=== PATIENT | female | born 1965 | race Two or more races ===

== ENCOUNTER 2024-09-12 15:49 | Inpatient (IN) | payer OTHER ==
[~2024-09-12] VITALS: Ht 167.6 cm; Wt 59.0 kg
--- NOTE | 2024-09-12 15:58 | ECG ---
[facility] Test Date: 2024-09-12 Test Time: 15:50:00 Pat Name: WILI BATES Department: ED Room: Gender: F Service Engine Repairer: makayla : 1965 Requested By: RUFUS PURDY Order Number: [id number] Reading MD: Measurements Intervals [place] Rate: 70 P: 0 VA: 205 QRS: 47 QRSD: 114 T: 151 QT: 424 QTc: 458 Interpretive Statements Atrial-paced rhythm Borderline intraventricular conduction delay Abnormal T, consider ischemia, diffuse leads Please click the below link to view image of tracing.
[2024-09-12 16:31] LABS: Hematocrit 45.8 % (36.0-46.0); Hemoglobin 15.8 g/dL (12.2-16.2); Mean Corpuscular Hemoglobin 31.3 pg (28.0-32.0); Mean Corpuscular Volume 90.9 fL (80.0-100.0); Nucleated Red Blood Cells % 0.2 %
--- NOTE | 2024-09-12 16:31 | DVH ---
XY CHEST PORTABLE, HISTORY: near syncope COMPARISON: None None TECHNICAL DATA: 1 view of the chest was obtained. FINDINGS: Lines and tubes: A cardiac pacer is visualized. Cardiomediastinal silhouette: normal Pulmonary vasculature: normal Lung expansion: normal Lung airspace: normal Lung interstitium: normal Pleura: normal Pneumothorax: no Bones: Unremarkable Other: no IMPRESSION: No acute intrathoracic abnormality.
--- NOTE | 2024-09-12 16:38 | DVH ---
EXAM: CT HEAD WITHOUT CONTRAST INDICATION: near syncope TECHNIQUE: CT of the head without intravenous contrast. Coronal and sagittal reformatted images are s ubmitted. Radiation Dose : 1. Head: CT Dose: CTDI volume is 53.5 mGy. Dose-length product is 966.5 mGy*cm The dose indicators for CT are the volume Computed Tomography (CT) Dose Index (CTDIvol) and the Dose Length Product (DLP), and are measured in units of mGy and mGy-cm, respectively. These indicators are not patient dose, but values generated from the CT scanner acquisition factors. The report includes radiation exposure data for exposures received during this examination. All CT scans at this medical facility are performed using dose modulation techniques as appropriate to a performed exam including the following: Automated exposure control was utilized; adjustment of the MA and/or KV according to patient size; and use of iterative reconstruction technique. COMPARISON: None FINDINGS: There is no evidence of acute intracranial hemorrhage, extra-axial collection, mass effect, midline s hift, herniation or hydrocephalus. Generalized volume loss. The ventricles, sulci and cisterns are age appropriate. The friend-white differentiation is intact. The visualized paranasal sinuses and mastoid air cells are clear. No depressed calvarial fracture. The surrounding soft tissues are unremarkable. IMPRESSION: 1. No evidence of acute intracranial abnormality. HS:Y
[2024-09-12 16:39] LABS: Potassium 4.2 mmol/L (3.5-5.1); Sodium 139 mmol/L (136-145)
[2024-09-12 16:40] LABS: Anion Gap 11 (5-15)
[2024-09-12 16:41] LABS: Calcium 10.1 mg/dL (8.7-10.4); Carbon Dioxide 19 mmol/L (20-31); Chloride 109 mmol/L (98-107)
[2024-09-12 16:45] LABS: BUN/Creatinine Ratio 21.6 (10.0-20.0); Blood Urea Nitrogen 16 mg/dL (9-23); Glucose 101 mg/dL (74-106)
[2024-09-12 17:00] VITALS: PULSE 70; RESP 15; O2SAT 100
[2024-09-12] MEDS: METOCLOPRAMIDE HCL 5MG/ml INJ 2ml VIAL IV ONE (19:04)
--- NOTE | 2024-09-12 19:11 | ED.PDOC ---
History of Present Illness HPI Comments 58 y/o F is BIBA for syncope. Per EMS report, patient passed out, suddenly, when shopping with her at [employer] earlier, today. Syncope episode was witnessed. Patient was caught by and assisted to the ground. No injuries or additional acute symptoms endorsed by the patient after coming to upon arrival to ED. Significant history of pacemaker and multiple cardiac- related surgeries. Chief Complaint: Syncope Time Seen by MD: 15:45 Reviewed Notes: Nurses Notes, Special Education Paraeducator Notes, Medications, Allergies Allergies: Coded Allergies: Phenothiazines (Verified Allergy, Unknown, 09/12/24) Information Source: Patient, Emergency Med Personnel Mode of Arrival: EMS Severity: Moderate Timing: Hours Duration: Since onset Prehospital treatment: None Past Medical History Surgical History: Pacemaker Surgical History (Other): complex heart surgeries All Other Systems: Reviewed and Negative (Comprehensive systems review obtained and negative except for what is stated in the HPI.) Physical Exam General Appearance: No Apparent Distress, Normal HEENT: Normal ENT Inspection, Pharynx Normal, TMs Normal, Other (dry mucus membranes ) Neck: Full Range of Motion, Non-Tender, Normal, Normal Inspection Respiratory: Chest Non-Tender, Lungs Clear, No Accessory Muscle Use, No Respiratory Distress, Normal Breath Sounds Cardiovascular: No Edema, No JVD, No Murmur, No Gallop, Normal Peripheral Pulses, Regular Rate/Rhythm Breast Exam: Deferred Gastrointestinal: No Organomegaly, Non Tender, No Pulsatile Mass, Normal Bowel Sounds, Soft Genitalia: Deferred Pelvic: Deferred Rectal: Deferred Extremities: No calf tenderness, Normal capillary refill, Normal inspection, Normal range of motion, Non-tender, No pedal edema Musculoskeletal : Apperance: Normal Neurologic: Alert, tube maker II-XII nml as Tested, No Motor Deficits, Normal Affect, Normal Mood, No Sensory Deficits Cerebellar Function: Normal Reflexes: Normal Skin: Dry, Normal Color, Warm Lymphatic: No Adenopathy Was a procedure done? Was a procedure done?: No EKG EKG : Pulse Rate (adult): 70 Furlong: Normal Cardiac Rhythm: Paced (atrial paced ) Block: None Hypertrophy: None ST: Normal Differential Dx Considerations may include: vasovagal response, dehydration, electrolyte imbalance, viral syndrome, among others X-Ray, Labs, Meds, VS Vital Signs Date Time Temp Pulse Resp B/P (MAP) Pulse Ox O2 Delivery O2 Flow Rate FiO2 09/12/24 19:11 70 09/12/24 16:07 98.0 70 16 111/66 (81) 96 98.0 09/12/24 15:50 70 Lab Test 09/12/24 19:25 09/12/24 17:29 09/12/24 16:20 Range/Units Troponin I High Sensitivity Pending 3 L 3 L </=34 ng/L White Blood Count 5.9 4.4-10.8 10^3/uL Red Blood Count 5.04 4.0-5.20 10^6/uL Hemoglobin 15.8 12.2-16.2 g/dL Hematocrit 45.8 36.0-46.0 % Mean Corpuscular Volume 90.9 80.0-100.0 fL Mean Corpuscular Hemoglobin 31.3 28.0-32.0 pg Mean Corpuscular Hemoglobin Concent 34.5 32.0-36.0 g/dL Red Cell Distribution Width 13.9 11.8-14.3 % Platelet Count 137 L 140-450 10^3/uL Mean Platelet Volume 8.7 6.9-10.8 fL Neutrophils (%) (Auto) 59.4 37.0-80.0 % Lymphocytes (%) (Auto) 29.4 10.0-50.0 % Monocytes (%) (Auto) 8.9 0.0-12.0 % Eosinophils (%) (Auto) 1.4 0.0-7.0 % Basophils (%) (Auto) 0.9 0.0-2.0 % Neutrophils # (Auto) 3.5 1.6-8.6 10 ^3/uL Lymphocytes # (Auto) 1.7 0.4-5.4 10 ^3/uL Monocytes # (Auto) 0.5 0-1.3 10 ^3/uL Eosinophils # (Auto) 0.1 0-0.8 10 ^3/uL Basophils # (Auto) 0.1 0-0.2 10 ^3/uL Nucleated Red Blood Cells 0.2 % Sodium Level 139 136-145 mmol/L Potassium Level 4.2 3.5-5.1 mmol/L Chloride Level 109 H 98-107 mmol/L Carbon Dioxide Level 19 L 20-31 mmol/L Anion Gap 11 5-15 Blood Urea Nitrogen 16 9-23 mg/dL Creatinine 0.74 0.550-1.02 mg/dL Glomerular Filtration Rate Calc 94 >90 mL/min BUN/Creatinine Ratio 21.6 H 10.0-20.0 Serum Glucose 101 74-106 mg/dL Calcium Level 10.1 8.7-10.4 mg/dL Current Medications Medications (Trade) Dose Ordered Sig/Angelica Route Start Time Stop Time Status Last Admin Metoclopramide HCl (Reglan Injection) 10 mg ONCE ONCE IV 09/12/24 18:30 09/12/24 18:31 DC 09/12/24 19:04 [place] [id number] Ph: [phone] DIAGNOSTIC IMAGING Diagnostic Imaging Report : [id number] Signed PATIENT: WILI BATES ACCT: [id number] UNIT: [id number] : 1965 LOC: ER ROOM / BED: / AGE / SEX: 58 / F ADM STATUS: REG ER SERVICE 1551 ORDERING PHYSICIAN: RUFUS PURDY MD PROCEDURE(s): HWOCT - HEAD WITHOUT CONTRAST REASON: near syncope ORDER NUMBER(s): [id number], ACCESSION NUMBER(s): [id number] EXAM: CT HEAD WITHOUT CONTRAST INDICATION: near syncope TECHNIQUE: CT of the head without intravenous contrast. Coronal and sagittal reformatted images are submitted. Radiation Dose : 1. Head: CT Dose: CTDI volume is 53.5 mGy. Dose-length product is 966.5 mGy*cm The dose indicators for CT are the volume Computed Tomography (CT) Dose Index (CTDIvol) and the Dose Length Product (DLP), and are measured in units of mGy and mGy-cm, respectively. These indicators are not patient dose, but values generated from the CT scanner acquisition factors. The report includes radiation exposure data for exposures received during this examination. All CT scans at this medical facility are performed using dose modulation techniques as appropriate to a performed exam including the following: Automated exposure control was utilized; adjustment of the MA and/or KV according to patient size; and use of iterative reconstruction technique. COMPARISON: None FINDINGS: There is no evidence of acute intracranial hemorrhage, extra-axial collection, mass effect, midline shift, herniation or hydrocephalus. Generalized volume loss. The ventricles, sulci and cisterns are age appropriate. The friend-white differentiation is intact. The visualized paranasal sinuses and mastoid air cells are clear. No depressed calvarial fracture. The surrounding soft tissues are unremarkable. IMPRESSION: 1. No evidence of acute intracranial abnormality. HS:Y ATED BY: RAÚL JAMES MD DICTATED DATE/TIME: 09/12/241634 SIGNED BY: RAÚL JAMES MD SIGNED DATE/TIME: 09/12/241634 CC: [place] [id number] Ph: [phone] DIAGNOSTIC IMAGING Diagnostic Imaging Report : [id number] Signed PATIENT: WILI BATES ACCT: [id number] UNIT: [id number] : 1965 LOC: ER ROOM / BED: / AGE / SEX: 58 / F ADM STATUS: REG ER SERVICE 1551 ORDERING PHYSICIAN: RUFUS PURDY MD PROCEDURE(s): CXRP - CHEST PORTABLE REASON: near syncope ORDER NUMBER(s): [id number], ACCESSION NUMBER(s): [id number] XY CHEST PORTABLE, HISTORY: near syncope COMPARISON: None None TECHNICAL DATA: 1 view of the chest was obtained. FINDINGS: Lines and tubes: A cardiac pacer is visualized. Cardiomediastinal silhouette: normal Pulmonary vasculature: normal Lung expansion: normal Lung airspace: normal Lung interstitium: normal Pleura: normal Pneumothorax: no Bones: Unremarkable Other: no IMPRESSION: No acute intrathoracic abnormality. ATED BY: KAVEH FAM MD DICTATED DATE/TIME: 09/12/241627 SIGNED BY: KAVEH FAM MD SIGNED DATE/TIME: 09/12/241627 CC: Time of 1ST Reevaluation: 16:15 Reevaluation 1ST: Unchanged Patient Education/Counseling: Diagnosis, Treatment Family Education/Counseling: No Family Present Comments Previous visits reviewed: N/A The following tests were ordered, and results were reviewed by me: EKG, troponin, head CT w/o contrast, CXR, UA, CBC, BMP Additional Information was gathered from interviewing the following independent historians: EMS I reviewed and agreed with the following test results read by other providers: head CT w/o contrast, CXR I discussed treatment and results with medical personnel and: patient SEPSIS Sepsis Screen Date sepsis recognized/suspect: Sep 12, 2024 Time Sepsis recognized/suspect: 1553 Recent Procedure: No On Antibiotic Therapy: No Respiratory Rate >20: No Heart Rate >90: No Temp<36 C (96.8 F) or >38.3 C: No SBP <90 or MAP <65 mmHG: No New Acute Mental Status Change: No Is the patient on CPAP, BIPAP,: No Physician Orders Urinalysis (09/12/24 15:51) Chest Portable (09/12/24 15:51) Head Without Contrast (09/12/24 15:51) Troponin-I Hs (09/12/24 18:51) Electrocardigram (09/12/24 16:51) Electrocardigram (09/12/24 18:51) Vital Signs Date Time Temp Pulse Resp B/P (MAP) Pulse Ox O2 Delivery O2 Flow Rate FiO2 09/12/24 19:11 70 09/12/24 16:07 98.0 70 16 111/66 (81) 96 98.0 09/12/24 15:50 70 Laboratory Tests Test 09/12/24 16:20 White Blood Count 5.9 10^3/uL (4.4-10.8) Medications Medications Dose Ordered Sig/Angelica Route Start Time Stop Time Status Last Admin Dose Admin Metoclopramide HCl 10 mg ONCE ONCE IV 09/12/24 18:30 09/12/24 18:31 DC 09/12/24 19:04 Departure 1 Departure Time of Disposition: 19:39 (Patient presented with syncope today and should be admitted. Data: 1. I ordered and reviewed the result of at least 3 labs including a CBC, BMP, and troponin. 2. I independently interpreted the following tests: EKG which shows a paced rhythm and a chest x-ray which shows benign chest and a CT head which shows benign head.Risk:This patient has a high risk of morbidity due to further diagnostic testing or treatment and may suffer from an acute cardiac, neurologic, or infectious disorder. Rationale: Patient should be admitted to the hospital for further management.) Impression: Primary Impression: Syncope and collapse Additional Impression: Generalized weakness Disposition: ADMITTED INPATIENT Admit to: Med Surg Condition: Serious Critical Care Note Critical Care Time?: No Stability Stability form required: No Heart Score Heart Score: Heart Score Response (Comments) Value History Moderate Suspicious 1 EKG Normal 0 Age 45-64 1 Risk Factors 1 or 2 risk factors 1 Troponin Normal limit 0 Total 3 I personally scribed for RUFUS PURDY MD ([email or web address]) on 09/12/24 at 19:11. Electronically submitted by Doron Lerma ([email or web address]). RUFUS PURDY MD Sep 12, 2024 19:11
[2024-09-12 19:30] VITALS: PULSE 70; RESP 12; O2SAT 100
[2024-09-12] MEDS ORDERED: HYDROcodone-ACET 5/325MG TAB PO PRN (21:00)
[2024-09-12] MEDS ORDERED: ACETAMINOPHEN 325 MG TAB PO PRN (21:00)
[2024-09-12 21:40] LABS: Triglycerides 57 mg/dL (< 150)
[2024-09-12 21:42] LABS: Cholesterol 155 mg/dL (< 200); HDL Cholesterol 45 mg/dL (40-59)
[2024-09-12] MEDS: SODIUM CHLORIDE 0.9% 1,000 ML IV ONE ×2 (22:00→22:15)
--- NOTE | 2024-09-12 22:24 | DVHHPRES ---
History of Present Illness Resident Creating Document: CLIVE CHARLES History of Present Illness This is a 58-year-old female with past medical history of pacemaker placement. Patient states had a previous pacemaker in the left upper chest which is still has but [address] a new Medtronic pacemaker in the left lower thoracic area. Patient has hx of congenital heart disease (tetralogy of fallot?) and had madhu wil taussig shunt procedure as well as fontan procedure. The patient was brought by ambulance in the presence of her due to a pr esyncopal episode that happened this morning before coming to the ED while the patient was on [employer] shopping and started feeling generalized weakness, dizziness and reported to her that was not feeling fine. The assisted her to the floor but there was not loss of consciousness at any time and patient was alert and oriented during the episode. Per , the patient also had nausea and small episode of vomiting. Upon admission, CBC and CMP was grossly unremarkable, troponins came back negative. Orthostatic vitals were checked blood pressure lying position was 127/60 mmHg, sitting position was 125/77 mmHg, standing position 143/83 mmHg. Orthostatic vitals were negative. Patient will be admitted for further assessment and management and to rule out any cardiac etiologies of presyncopal event as well as for pacemaker interrogation. Cardiovascular: Other (Congenital heart disease) Past Surgical History: Other (Fontan procedure, Madhu Castillo Taussig shunt procedure) Family History: None Smoke: No ALCOHOL: none Drugs: None Lives: with Family Domestic Violence: Neg Review of Systems Constitutional: No: Fever, Chills, Sweats, Weakness, Malaise, Other Eyes: No: Pain, Vision change, Conjunctivae inflammation, Eyelid inflammation, Other, Redness ENT: No: Ear pain, Ear discharge, Nose pain, Nose discharge, Nose congestion, Mouth pain, Mouth swelling, Throat pain, Throat swelling, Other Respiratory: No: Cough, Dry, Shortness of breath, SOB with excertion, Wheezing, Hemoptysis, Pleuritic Pain, Sputum, Wheezing, Other Cardiovascular: No: Chest Pain, Palpitations, Orthopnea, Paroxysmal Noc. Dyspnea, Edema, Lt Headedness, Other Gastrointestinal: Abdominal Pain; No: Nausea, Vomiting, Diarrhea, Constipation, Melena, Hematochezia, Other Genitourinary: No Dysuria, No Frequency, No Incontinence, No Hematuria, No Retention, No Other Musculoskeletal: No: other, neck pain, shoulder pain, arm pain, back pain, hand pain, leg pain, foot pain Skin: No: Rash, Lesions, Jaundice, Bruising, Other Neurological: No: Weakness, Numbness, Incoordination, Change in speech, Confusion, Seizures, Other Allergies: Coded Allergies: Phenothiazines (Verified Allergy, Unknown, 09/12/24) Medications Current Medications Medications Dose Ordered Sig/Angelica Route Start Time Stop Time Status Last Admin Dose Admin Acetaminophen 650 mg Q6HP PRN PO 09/12/24 21:00 UNV Acetaminophen/ Hydrocodone Bitart 1 tab Q4HP PRN PO 09/12/24 21:00 UNV Enoxaparin Sodium 40 mg DAILY SC 09/13/24 10:00 UNV Exam Vital Signs Vital Signs Date Time Temp Pulse Resp B/P (MAP) Pulse Ox O2 Delivery O2 Flow Rate FiO2 09/12/24 19:11 70 09/12/24 18:00 14 115/58 (77) 100 09/12/24 17:00 Nasal Cannula* 2 28 09/12/24 16:42 98.1 98.1 General Appearance: Alert, Oriented X3, Cooperative, No acute distress HEENT: Atraumatic, PERRLA, EOMI, Mucous membr. moist/pink Respiratory: Clear to auscultation, Normal air movement Cardiovascular: Regular rate, Other (Paced rhythm) Abdominal: Normal bowel sounds, Soft, No tenderness, No hepatospenomegaly Extremities: No clubbing, No cyanosis, No edema, No tenderness/swelling, Other (No pulses present on right upper extremity.) Skin: No rashes, No breakdown, No significant lesion Neuro: Normal gait, Normal speech, Strength at 5/5 X4 ext, Normal tone, Sensation intact, Cranial nerves 3-12 NL, Reflexes 2+ Psych/Mental Status: Mental status NL, Mood NL Labs/Xrays Labs Test 09/12/24 19:25 09/12/24 16:20 Range/Units Troponin I High Sensitivity 3 L </=34 ng/L White Blood Count 5.9 4.4-10.8 10^3/uL Red Blood Count 5.04 4.0-5.20 10^6/uL Hemoglobin 15.8 12.2-16.2 g/dL Hematocrit 45.8 36.0-46.0 % Mean Corpuscular Volume 90.9 80.0-100.0 fL Mean Corpuscular Hemoglobin 31.3 28.0-32.0 pg Mean Corpuscular Hemoglobin Concent 34.5 32.0-36.0 g/dL Red Cell Distribution Width 13.9 11.8-14.3 % Platelet Count 137 L 140-450 10^3/uL Mean Platelet Volume 8.7 6.9-10.8 fL Neutrophils (%) (Auto) 59.4 37.0-80.0 % Lymphocytes (%) (Auto) 29.4 10.0-50.0 % Monocytes (%) (Auto) 8.9 0.0-12.0 % Eosinophils (%) (Auto) 1.4 0.0-7.0 % Basophils (%) (Auto) 0.9 0.0-2.0 % Neutrophils # (Auto) 3.5 1.6-8.6 10 ^3/uL Lymphocytes # (Auto) 1.7 0.4-5.4 10 ^3/uL Monocytes # (Auto) 0.5 0-1.3 10 ^3/uL Eosinophils # (Auto) 0.1 0-0.8 10 ^3/uL Basophils # (Auto) 0.1 0-0.2 10 ^3/uL Nucleated Red Blood Cells 0.2 % Sodium Level 139 136-145 mmol/L Potassium Level 4.2 3.5-5.1 mmol/L Chloride Level 109 H 98-107 mmol/L Carbon Dioxide Level 19 L 20-31 mmol/L Anion Gap 11 5-15 Blood Urea Nitrogen 16 9-23 mg/dL Creatinine 0.74 0.550-1.02 mg/dL Glomerular Filtration Rate Calc 94 >90 mL/min BUN/Creatinine Ratio 21.6 H 10.0-20.0 Serum Glucose 101 74-106 mg/dL Calcium Level 10.1 8.7-10.4 mg/dL SEPSIS Sepsis Screen Date sepsis recognized/suspect: Sep 12, 2024 Time Sepsis recognized/suspect: 1553 Recent Procedure: No On Antibiotic Therapy: No Respiratory Rate >20: No Heart Rate >90: No Temp<36 C (96.8 F) or >38.3 C: No SBP <90 or MAP <65 mmHG: No New Acute Mental Status Change: No Is the patient on CPAP, BIPAP,: No Physician Orders Urinalysis (09/12/24 15:51) Chest Portable (09/12/24 15:51) Head Without Contrast (09/12/24 15:51) Electrocardigram (09/12/24 16:51) Electrocardigram (09/12/24 18:51) Admit (09/12/24 20:50) Code Status (09/12/24 20:50) Vital Signs .PER UNIT PROTOCOL (09/12/24 20:50) Review Orders With Adm.Md (09/12/24 20:50) Regular Diet (09/13/24 Breakfast) Acetaminophen Tablet (Tylenol Tablet) (09/12/24 21:00) Notify Md Of Changes From Base (09/12/24 20:50) Advance Directive (09/12/24 20:50) Urinalysis (09/12/24 20:50) Complete Blood Count (09/13/24 04:00) Lipid Panel (09/12/24 20:50) Patient Condition (09/12/24 20:50) Allergies (09/12/24 20:50) Hydrocodone-Acet 5/325mg Tab (Sidon 5/32 (09/12/24 21:00) Drug Screen (09/12/24 20:50) Hemoglobin A1c (09/12/24 20:50) Enoxaparin Sodium (Lovenox) (09/13/24 10:00) Sodium Chloride 0.9% (09/12/24 21:00) Vital Signs Date Time Temp Pulse Resp B/P (MAP) Pulse Ox O2 Delivery O2 Flow Rate FiO2 09/12/24 19:11 70 09/12/24 18:00 70 14 115/58 (77) 100 09/12/24 17:00 70 15 100 Nasal Cannula* 2 28 09/12/24 16:42 98.1 70 18 116/55 (75) 98 98.1 09/12/24 16:07 98.0 70 16 111/66 (81) 96 98.0 09/12/24 15:50 70 Laboratory Tests Test 09/12/24 16:20 White Blood Count 5.9 10^3/uL (4.4-10.8) Medications Medications Dose Ordered Sig/Angelica Route Start Time Stop Time Status Last Admin Dose Admin Metoclopramide HCl 10 mg ONCE ONCE IV 09/12/24 18:30 09/12/24 18:31 DC 09/12/24 19:04 10 MG Assessment/Plan Assessment/Plan Assessment/plan Presyncopal event, R/O cardiac etiology Possible dehydration with intravascular volume depletion Ruled out Orthostatic hypotension Ruled out hypoglycemia History of pacemaker placement 10 years ago Acute hypoxic respiratory distress, possible viral pneumonia -Currently on 2L of O2 -EKG showed a paced rhythm with no ST segment elevation or depression. -troponins came back negative Ordered covid and influena A and B test -NS 0.9% 1 L of fluid bolus -maintain its IV fluids at 60 cc/hour -orthostatic vitals were negative, blood pressure lying position was 127/60 mmHg, sitting position was 125/77 mmHg, standing position 143/83 mmHg. -Ordered TSH, Vit B12 -Ordered Echocardiogram -Cardiology consulted Goals of care discussed with the patient and at bedside for > 35min, FULL CODE Plan discussed with Dr. Bui Plan discussed with: Patient My Orders Orders - CLIVE CHARLES Procedure Category Date Status Time Admit ADMIT 09/12/24 Transmitted 20:50 Code Status CODE 09/12/24 Transmitted 20:50 Vital Signs [facility] 09/12/24 In Process 20:50 Review Orders With FELIPE 09/12/24 In Process Adm. 20:50 Regular Diet DIET 09/13/24 Transmitted Breakfast Acetaminophen Tablet PHA 09/12/24 Logged (Tylenol Tablet) 21:00 Notify Of Changes [facility] 09/12/24 In Process From Base 20:50 Advance Directive [facility] 09/12/24 In Process 20:50 Urinalysis LAB 09/12/24 Logged 20:50 Complete Blood Count LAB 09/13/24 Verified 04:00 Lipid Panel LAB 09/12/24 Logged 20:50 Patient Condition ORDERS 09/12/24 Transmitted 20:50 Allergies FELIPE 09/12/24 In Process 20:50 Hydrocodone-Acet PHA 09/12/24 Logged 5/325mg Tab (Sidon 21:00 Drug Screen LAB 09/12/24 Logged 20:50 Hemoglobin A1c LAB 09/12/24 Logged 20:50 Enoxaparin Sodium PHA 09/13/24 Logged (Lovenox) 10:00 Sodium Chloride 0.9% PHA 09/12/24 Logged 21:00 Date of Service: Sep 12, 2024 Billing Provider: ROQUE BUI MD Common Visit Codes: 18299-OIWOBJT INP/OBS CARE (HIGH) Secondary Visit Codes: [id number] CARE PLAN 30 MINUTES CLIVE CHARLES RESIDENT Sep 12, 2024 22:24
[2024-09-12 23:14] VITALS: BP 115/59; PULSE 70; RESP 12; TEMP 97.8; O2SAT 100
[2024-09-13] MEDS ORDERED: ENOXAPARIN SOD 40 MG/0.4 ML SYRINGE SC SCH (10:00)
== END 2024-09-12 23:17 | disposition left against medical advice (07) | DRG 640 ==
LOC: EDBD 15:49 → ER 15:49 → OVERFLOW 20:50 → UNDODEPER 23:46
PROVIDERS: ADMIT Student in an Organized Health Care Education/Training Program; ATTEND Specialist
DX: E86.0 Dehydration (principal); J12.9 Viral pneumonia, unspecified; E86.9 Volume depletion, unspecified; Z53.29 Procedure and treatment not carried out because of patient's decision for other reasons; Z95.0 Presence of cardiac pacemaker; Z88.8 Allergy status to other drugs, medicaments and biological substances; Z79.899 Other long term (current) drug therapy
CPT/HCPCS: 36415; 70450; 71045; 80048; 80061; 82306; 82607; 83036; 84443; 84484; 85025; 93005; 96361; 96374; G0378